=== PATIENT | male | born 1965 | race African-American/Black ===

== ENCOUNTER 2020-11-19 09:05 | Day surgery (SDC) | payer OTHER ==
[~2020-11-19] VITALS: Ht 195.6 cm; Wt 86.4 kg
[~2020-11-19 09:05] MED LIST: HYDROCHLOROTHIA25 MG PO; ULTRAM50 MG PO
[2020-11-19] MEDS ORDERED: NORVASC5 MG PO (10:06)
[2020-11-19] MEDS ORDERED: BAYER CHEWABLE81 MG PO (10:06)
[2020-11-19] MEDS ORDERED: ACETAMINOPHEN500 M1 PO (10:06)
[2020-11-19] MEDS ORDERED: BACLOFEN10 MG PO (10:07)
[2020-11-19] MEDS ORDERED: LIPITOR40 MG PO (10:07)
[2020-11-19] MEDS ORDERED: COREG6.25 MG PO (10:07)
[2020-11-19] MEDS ORDERED: CYMBALTA30 MG PO (10:08)
[2020-11-19] MEDS ORDERED: DOXYCYCLINE HY100 M2 PO (10:08)
[2020-11-19] MEDS ORDERED: ADVAIR HFA [SP]12 GM INH (10:09)
[2020-11-19] MEDS ORDERED: ELIQUIS5 MG PO (10:09)
[2020-11-19] MEDS ORDERED: NAPROSYN500 MG PO (10:10)
[2020-11-19] MEDS ORDERED: OMEPRAZOLE40 MG PO (10:10)
[2020-11-19] MEDS ORDERED: HYDROCHLOROTHIA25 MG PO (10:10)
[2020-11-19] MEDS ORDERED: XOPENEX HFA15 GM INH (10:11)
[2020-11-19 10:16] VITALS: BP 130/89; Ht 195.6 cm; Wt 86.4 kg
[2020-11-19 10:33] LABS: HEMATOCRIT 30.8 % (42.0-54.0); HEMOGLOBIN 9.8 g/dL (13.5-17.5); LYMPHOCYTE ABS# 2.84 10x3/uL (1.32-3.57); MCH 30.2 pg (26.0-34.0); MCHC 31.8 g/dL (31.0-37.0); MCV 95.1 fL (80.0-100.0); MEAN PLATELET VOLUME 11.1 fL (7.4-10.4); NEUTROPHIL ABS# 1.56 10x3/uL (1.78-5.38); PLATELET COUNT 194 10x3/uL (130-400); RBC 3.24 10x6/uL (4.20-6.10); RDW 15.7 % (11.5-14.5); WBC 5.1 10x3/uL (4.8-10.8)
[2020-11-19 10:36] LABS: APTT 27.7 SECONDS (22.8-39.4); CALC OSMOLALITY 278 mosm/kg (275-300); CALCIUM 8.7 mg/dL (8.5-10.1); CARBON DIOXIDE 26.1 mmol/L (21.0-32.0); CHLORIDE - SERUM 105 mmol/L (98-107); CREATININE - SERUM 0.5 mg/dL (0.6-1.3); GLUCOSE 80 mg/dL (74-106); INR 1.15 (0.85-1.17); POTASSIUM - SERUM 3.6 mmol/L (3.5-5.1); PROTIME 13.6 SECONDS (11.6-15.0); SODIUM 139 mmol/L (136-145); UREA NITROGEN 17 mg/dL (7-18); eGFR NON AFRICAN AMERICAN > 90 mL/min (90-120)
--- NOTE | 2020-11-19 12:11 | NUR ---
1200 SEE POST PROCEDURE CHECKLIST FOR VITAL SIGN TRENDS. GUARDS AT BEDSIDE, WATER SERVED, FINGER FOOD DIET ORDERED.
--- NOTE | 2020-11-19 12:28 | NUR ---
1215 A/A, EATING LUNCH, DRESSING CDI, QUESTIONS IF HE WOULD SEE A DRSuzette FOR RESULTS TODAY, I SAID THE BIO[SY WOULD GO TO A PATHOLOGIST TO SEE WHAT WAS GOING ON WITH HIM AND THEN A PLAN OF CARE WOULD BE ESTABLISHED AND DR. GUSMAN WOULD GET WITH HIM WITH THE RESULTS.
--- NOTE | 2020-11-19 13:08 | NUR ---
1225 REPORT TO JERMAN RAUSCH RN FOR LUNCH RELIEF.
[2020-11-19 13:16] LABS: EOSINOPHILS 4 % (0-7); LYMPHOCYTES 48 % (15-50); MONOCYTES 8 % (2-11); NEUTROPHILS 40 % (40-80); PLATELET ESTIMATE NORMAL
== END 2020-11-19 14:05 ==
LOC: D.CT 09:05
PROVIDERS: General Practice; ATTEND Surgery
DX: L04.9 Acute lymphadenitis, unspecified (principal); M25.561 Pain in right knee; Z96.651 Presence of right artificial knee joint

== ENCOUNTER 2020-11-27 05:26 | Day surgery (SDC) | payer OTHER ==
[~2020-11-27] VITALS: Ht 195.6 cm; Wt 83.9 kg
--- NOTE | ~2020-11-27 | EC ---
PATIENT:LUZ PERALES DATE OF SERVICE: 11/27/20 SEX: M MEDICAL RECORD: [id number] DATE OF : 61 LOCATION:[facility] AGE OF PATIENT: 55 ADMISSION DATE: 11/27/20 REFERRING PHYSICIAN: INTERPRETING PHYSICIAN: RUBY HOOD MD ECHOCARDIOGRAM REPORT ECHO CHARGES 4 ECHO COMPLETE Date: 11/27/20 CLINICAL DIAGNOSIS: STARTING CHEMO-NEED BASELINE ECHOCARDIOGRAPHIC MEASUREMENTS (adult normal given) AC root (d.<3.7cm) 3.8 cm LV Septum d (<1.2 cm> 1.2 cm Valve Excursion 1.8 cm LV Septum (systole) 1.8 cm Left Atria (s.<4.0cm> cm LVPW d(<1.2cm) 1.0 cm RV (d.<2.3cm) 2.7 cm LVPW (sytole) 1.4 cm LV diastole(<5.6CM) 5.5 cm MV E-F(>70mm/sec) cm LV systole 3.0 cm LVOT Diameter 1.7 cm MV exc.(>10mm) 1.9 cm Est.ejection fraction (50-75%) % DOPPLER: LVIT cm/sec A 112 cm/sec E 91 cm/sec LA cm/sec RVSP 31 mmHg LVOT 82 cm/sec AOP1/2T m/s Asc. Ao 133 cm/sec RVOT 52 cm/sec RA cm/sec PA 76 cm/sec AV Gradient Peak 7.0 mmHg AV Mean 3.8 mmHg AV Area 1.4 cm MV Gradient Peak 4.8 mmHg MV Mean 2.4 mmHg MV Area cm COMMENTS: Collect On Delivery Clerk: Magalie [facility] Family Practice Medical Doctor: 3 Dr. Nix TAPE# Pericardial Effusion N DATE OF SERVICE: Adequate 2D, color-flow imaging, spectral Doppler, and M-Mode FINDINGS: No LVH. LV internal dimensions are normal. Wall motion is normal. EF is greater than or equal to 55%. Aortic valve is tricuspid. No evidence of stenosis by Doppler interrogation. Grossly, left atrium appears normal. Mitral valve shows no prolapse. Trace MR. Right-sided chamber is grossly normal. Mild TR. ECHOCARDIOGRAM REPORT [id number] LUZ PERALES TRANSINT:[id number] Voice Confirmation ID: [id number] DOCUMENT ID: [id number] RUBY HOOD MD CC: [id number] DICTATION DATE: 11/28/20 1413 EFFICIENCY MINER BLASTING: 11/28/20 1515 [facility] SD[facility] 11/27/20 [place] [id number] [place] [id number]
[~2020-11-27 05:26] MED LIST changes: +ACETAMINOPHEN500 M1 PO; +ADVAIR HFA [SP]12 GM INH; +BACLOFEN10 MG PO; +BAYER CHEWABLE81 MG PO; +COREG6.25 MG PO; +CYMBALTA30 MG PO; +DOXYCYCLINE HY100 M2 PO; +ELIQUIS5 MG PO; +LIPITOR40 MG PO; +NAPROSYN500 MG PO; +NORVASC5 MG PO; +OMEPRAZOLE40 MG PO; +XOPENEX HFA15 GM INH
[2020-11-27 05:56] LABS: BASOPHILS 0.4 % (0-2); EOSINOPHILS 4.2 % (0-7); HEMATOCRIT 32.2 % (42.0-54.0); HEMOGLOBIN 10.4 g/dL (13.5-17.5); IMMATURE GRANULOCYTES 0.2 % (0-5); LYMPHOCYTE ABS# 3.08 10x3/uL (1.32-3.57); LYMPHOCYTES 54.3 % (15-50); MCH 30.8 pg (26.0-34.0); MCHC 32.3 g/dL (31.0-37.0); MCV 95.3 fL (80.0-100.0); MEAN PLATELET VOLUME 10.4 fL (7.4-10.4); MONOCYTES 9.3 % (2-11); NEUTROPHIL ABS# 1.79 10x3/uL (1.78-5.38); NEUTROPHILS 31.6 % (40-80); PLATELET COUNT 185 10x3/uL (130-400); RBC 3.38 10x6/uL (4.20-6.10); RDW 15.4 % (11.5-14.5); WBC 5.7 10x3/uL (4.8-10.8)
[2020-11-27 06:06] LABS: CALC OSMOLALITY 275 mosm/kg (275-300); CALCIUM 8.8 mg/dL (8.5-10.1); CARBON DIOXIDE 30.2 mmol/L (21.0-32.0); CHLORIDE - SERUM 102 mmol/L (98-107); CREATININE - SERUM 0.5 mg/dL (0.6-1.3); GLUCOSE 85 mg/dL (74-106); POTASSIUM - SERUM 3.9 mmol/L (3.5-5.1); SODIUM 138 mmol/L (136-145); UREA NITROGEN 15 mg/dL (7-18); eGFR NON AFRICAN AMERICAN > 90 mL/min (90-120)
[2020-11-27 06:13] LABS: APTT 28.2 SECONDS (22.8-39.4); INR 1.02 (0.85-1.17); PROTIME 12.4 SECONDS (11.6-15.0)
[2020-11-27 07:14] VITALS: BP 129/88; Ht 195.6 cm; Wt 83.9 kg
--- NOTE | 2020-11-27 10:27 | NUR ---
CHEST PORT ON L SIDE. CHEST XRAY PER DR GUSMAN. CDI. NO BLEEDING NO HEMATOMA. WILL CONTINUE TO MONITOR.
--- NOTE | 2020-11-27 10:31 | NUR ---
PT STATES NO PAIN AT THIS TIME. RESTING COMFORTABLY.
--- NOTE | 2020-11-27 10:33 | HP ---
PATIENT: LUZ PERALES MEDICAL RECORD: [id number] ACCOUNT: [id number] LOCATION:[facility] : 61 ADMISSION DATE: 11/27/20 PCP: CORRY CHRISTINE HISTORY AND PHYSICAL EXAMINATION CHIEF COMPLAINT: Chronic lymphocytic leukemia. HISTORY OF PRESENT ILLNESS: The patient is here for a port. He is going to be seeing Dr. Storm after this. The risks, possible complications, and alternatives to port placement were explained to the patient. He elects to proceed. I am going to try to place that on the left. If that is unsuccessful, then I will place it on the right. The amount of lymphadenopathy the patient has had has probably doubled in size as I saw him a week and a half ago. He has got bilateral groin lymphadenopathy, which is quite impressive as well as bilateral axillary lymphadenopathy as well as supraclavicular lymphadenopathy. He underwent a percutaneous biopsy by the interventional radiologist. I spoke to Dr. Lund regarding his condition. PAST MEDICAL AND SURGICAL HISTORY: Hepatitis C, hypercholesterolemia, gastroesophageal reflux, hypertension, total knee arthroplasty. MEDICATIONS AT THE CORRECTION: Reviewed. ALLERGIES: No known drug allergies. PHYSICAL EXAMINATION: GENERAL: The patient does not appear acutely ill. He does not appear chronically ill. VITAL SIGNS: Reviewed. EARS: External ears appear normal. EYES: Extraocular movements are intact. NECK: Trachea is midline. CHEST: No intercostal retractions. PULMONARY: Nonlabored. No stridor. ABDOMEN: Nontender. LYMPHATIC: As described above. IMPRESSION: Port placement for chemotherapy. PLAN: As described above. TRANSINT:[id number] Voice Confirmation ID: [id number] DOCUMENT ID: [id number] JACI GUSMAN MD at 1033 CC: DERRICK HENDRIX MD, JENI STORM MD and CORRY CHRISTINE [id number] DICTATION DATE: 11/27/20 0852 ROLLER TURNER: 11/27/20 1023 [facility] [address] [place] [address]
--- NOTE | 2020-11-27 12:02 | NUR ---
1145 ULTRASOUND OF HEART DONE TOLERATED WELL
--- NOTE | 2020-11-27 12:40 | NUR ---
1215 IV REMOVED INSTRUCTIONS GIVEN.
--- NOTE | 2020-11-28 11:12 | OP ---
PATIENT NAME: LUZ PERALES MEDICAL RECORD: [id number] :61 LOCATION:[facility] ADMISSION DATE: SURGEON: JACI GUSMAN MD DATE OF OPERATION: 11/27/2020 PREOPERATIVE DIAGNOSIS: Chronic lymphocytic leukemia. POSTOPERATIVE DIAGNOSIS: Chronic lymphocytic leukemia. PROCEDURE: 1. Placement of left infraclavicular PowerPort under fluoroscopic guidance. 2. Immediate surgeon interpretation of the fluoroscopic images. SURGEON: Jaci Gusman MD SUPERVISOR [employer]: None. BLOOD LOSS: Minimal. ANESTHESIA: General. COMPLICATIONS: None. The risks, possible complications and alternatives of the procedure were explained to the patient. He elects to proceed. The discussion specifically included, but was not limited to, bleeding requiring emergency reoperation, infection. The fact that the port could break, clot off or flip. No radiologist was present for this procedure. Static fluoroscopic images were obtained and are kept in the PACS system. DESCRIPTION OF PROCEDURE: The patient was conveyed to the operating room electively on 11/27/2020. General anesthesia was induced by the anesthesia staff. The left chest and left neck were sterilely prepped and draped. Under ultrasonographic guidance, I percutaneously accessed the left internal jugular vein in an antegrade fashion. A guidewire was passed easily. This was visualized under fluoroscopy. It could be seen coursing down the left side of the mediastinum, crossing over and going into the right side of the heart. A transverse incision was accomplished in the left anterior superior infraclavicular chest. I dissected down to the pectoralis fascia. A subcutaneous pocket was created in a caudad direction. I then tunneled the PowerPort catheter from the chest incision to a neck incision that I accomplished around the wire. Over the wire, a dilator sheath was advanced. The dilator and wire were removed. Through the peel-away sheath, the catheter was advanced. This was visualized on fluoroscopy. I pulled the catheter back so that it was at the cavoatrial junction. I cut the catheter attached to the PowerPort. The locking device was firmly engaged. The port was placed in the subcutaneous pocket and with 3-point fixation it was sutured to the underlying pectoralis fascia with 3-0 Prolene strip. Nick was used for additional hemostasis in the port pocket. The neck incision was closed with interrupted intracuticular 3-0 Vicryls. The chest incision was closed with interrupted subcutaneous 3-0 Vicryls and the skin was approximated with a running intracuticular 3-0 Vicryl. I accessed the port. It flushed easily and aspirated dark, nonpulsatile blood. OPERATIVE REPORT [id number] LUZ PERALES The port will be left accessed as the patient is going to be going over to Dr. Storm's office and can have some blood draws through the access port. A final set of radiographic images reveals no radiographic evidence of complication. No pneumothorax. No apparent kinking or twisting of the catheter. TRANSINT:[id number] Voice Confirmation ID: [id number] DOCUMENT ID: [id number] JACI GUSMAN MD at 1112 CC: DERRICK HENDRIX MD and JENI STORM MD [id number] DICTATION DATE: 11/27/20 1744 PACKAGE WORKER: 11/28/20 0104 [facility] 11/27/20 [place] [id number] [place] [address]
== END 2020-11-27 12:15 ==
LOC: D.OPS 05:26
PROVIDERS: Anesthesiology; ATTEND Surgery
DX: C91.10 Chronic lymphocytic leukemia of B-cell type not having achieved remission (principal); B19.20 Unspecified viral hepatitis C without hepatic coma; E78.00 Pure hypercholesterolemia, unspecified; K21.9 Gastro-esophageal reflux disease without esophagitis; I10 Essential (primary) hypertension